=== PATIENT | female | born 1985 | race Caucasian/White ===

== ENCOUNTER 2022-06-05 06:16 | Emergency (ER) | payer OTHER ==
[~2022-06-05] VITALS: Ht 167.6 cm; Wt 100.0 kg
[2022-06-05 06:51] LABS: BASOPHILS % (AUTO) 0.5 % (0.0-2.0); EOSINOPHILS % (AUTO) 0.6 % (1.0-6.0); HEMATOCRIT 39.2 % (36-46); HEMOGLOBIN 13.3 g/dL (12.0-16.0); LYMPHOCYTES # (AUTO) 0.5 K/uL (1.0-4.8); LYMPHOCYTES % (AUTO) 6.2 % (22.0-44.0); MEAN CORPUSCULAR HEMOGLOBIN 27.8 pg (26.0-34.0); MEAN CORPUSCULAR VOLUME 82 fL (80-100); MONOCYTES # (AUTO) 0.8 K/uL (0.1-1.0); MONOCYTES % (AUTO) 10.7 % (2.0-9.0); NEUTROPHILS # (AUTO) 6.1 K/uL (1.8-7.7); PLATELET COUNT (AUTO) 254 K/uL (150-450); RED BLOOD CELL COUNT(AUTO) 4.78 MIL/uL (4.00-5.20); RED CELL DISTRIBUTION WIDTH 13.7 % (11.5-14.5)
[2022-06-05 07:00] LABS: ANION GAP 10 mmol/L (8-16); CALCIUM, TOTAL 8.9 mg/dL (8.8-10.5); CARBON DIOXIDE 26 mmol/L (22-29); CHLORIDE 101 mmol/L (98-107); CREATININE 0.73 mg/dL (0.60-1.30); GLUCOSE,RANDOM 122 mg/dL (70-110); POTASSIUM 3.8 mmol/L (3.5-5.1); SODIUM SERUM 137 mmol/L (136-145); UREA NITROGEN, BLOOD 7 mg/dL (7-18)
[2022-06-05 07:02] LABS: GLOMERULAR FILTR. RATE CALC > 60 mL/min (>60)
[2022-06-05 07:25] LABS: ALANINE AMINOTRANSFERASE 55 U/L (12-78); ALBUMIN 3.5 g/dL (3.4-5.0); ALKALINE PHOSPHATASE 81 U/L (46-116); ASPARTATE AMINOTRANSFERASE 48 U/L (15-37); BILIRUBIN,TOTAL 0.2 mg/dL (0.1-1.0); CREATINE KINASE, TOTAL ONLY 309 U/L (26-192); HCG,QUANTITATIVE < 1 mIU/mL (0-6); PHOSPHORUS 3.7 mg/dL (2.5-4.9); TOTAL PROTEIN, SERUM 7.5 g/dL (6.4-8.2)
[2022-06-05] MEDS: MAGNESIUM OXIDE 400 MG TABLET PO ONE (07:55)
[2022-06-05 07:58] LABS: COVID AG,FIA SOURCE NASOPHARYNGEAL
[2022-06-05 08:18] LABS: INFLUENZA TYPE A NEGATIVE FOR TYPE A (NEGATIVE); INFLUENZA TYPE B NEGATIVE FOR TYPE B (NEGATIVE)
[2022-06-05 11:15] VITALS: BP 118/71
== END 2022-06-05 11:18 | disposition home or self-care (01) ==
LOC: EMS 06:20
DX: U07.1 COVID-19 (principal); E78.00 Pure hypercholesterolemia, unspecified; Z88.0 Allergy status to penicillin; Z88.6 Allergy status to analgesic agent; Z88.8 Allergy status to other drugs, medicaments and biological substances
CPT/HCPCS: 71045; 80053; 82550; 83735; 84100; 84484; 84702; 85025; 87804; 93005; 99285; 36415-L1; 36415-TC

== ENCOUNTER 2022-06-28 08:54 | Emergency (ER) | payer OTHER ==
[~2022-06-28] VITALS: Ht 167.6 cm; Wt 146.4 kg
[2022-06-28] MEDS ORDERED: KETOROLAC TROMETHAMINE 30 MG/ML VIAL IM ONE (09:45)
[2022-06-28 10:10] LABS: COVID AG,FIA SOURCE NASOPHARYNGEAL
[2022-06-28 10:34] LABS: INFLUENZA TYPE A NEGATIVE FOR TYPE A (NEGATIVE); INFLUENZA TYPE B NEGATIVE FOR TYPE B (NEGATIVE)
[2022-06-28 10:50] LABS: RAPID GROUP A STREP NEGATIVE (NEGATIVE)
[2022-06-28 11:00] VITALS: BP 131/79
== END 2022-06-28 11:26 | disposition home or self-care (01) ==
LOC: EMS 08:54
DX: H92.02 Otalgia, left ear (principal); Z20.822 Contact with and (suspected) exposure to COVID-19; E78.00 Pure hypercholesterolemia, unspecified; R73.03 Prediabetes; Z88.0 Allergy status to penicillin
CPT/HCPCS: 99283; 87426; 87430; 87804; 96372; J1885